=== PATIENT | female | born 1965 | race Two or more races ===

== ENCOUNTER 2023-10-03 06:28 | Day surgery (SDC) | payer OTHER ==
[2023-09-29 12:06] LABS: PH,URINE 5.5 (5.0-8.0); URINE APPEARANCE Clear; URINE BILIRRUBIN Negative (NEGATIVE); URINE BLOOD Negative; URINE COLOR Yellow; URINE GLUCOSE Negative (NEGATIVE); URINE LEUKOCYTE Negative; URINE NITRATE Negative; URINE PROTEIN Negative (NEGATIVE); URINE UROBILINOGEN 0.2 E.U./dl
[2023-09-29 12:10] LABS: URINE EPITHELIAL CELLS 33.2 uL (0.0-38.8); URINE WBC 3.5 uL (0.0-23.2)
[2023-09-29 12:12] LABS: HEMATOCRIT 37.7 % (36.0-45.00); HEMOGLOBIN 12.8 g/dL (12.0-15.00); MEAN CELL VOLUME 86.4 fL (80.00-100.00); MEAN CORPUSCULAR HEMOGLOBIN 29.3 pg (27.00-32.0); MEAN CORPUSCULAR HGB CONC 33.9 g/dl (32.0-36.0); PLATELET COUNT 277 K/uL (150-450); RED BLOOD COUNT 4.36 M/uL (4.00-6.00); RED CELL DISTRIBUTION WIDTH 14.1 % (11.5-14.5)
[2023-09-29 12:40] LABS: ALBUMIN 3.6 gm/dL (3.4-5.0); BILIRUBIN TOTAL 0.27 mg/dL (0.3-1.2); CALCIUM 8.8 mg/dL (8.5-10.1); CREATININE SERUM 0.54 mg/dL (0.55-1.02); GFR 115.95; GLOBULINA 3.8 G/DL (2.4-3.5); POTASSIUM 3.77 mEq/L (3.5-5.1); TOTAL PROTEIN 7.4 gm/dL (6.4-8.2)
[2023-09-29 12:42] LABS: INR < 0.93; PARTIAL THROMBOPLASTIN TIME 28.8 SECONDS (22.0-34.0)
[2023-09-29 12:55] LABS: URINE RBC 0.5 uL (0.0-20.8)
[2023-09-29 12:56] LABS: PROTHROMBIN TIME 9.8 SECONDS (9.0-11.5)
== END 2023-10-03 18:00 | disposition home or self-care (01) ==
LOC: CIR.AMB 06:28
PROVIDERS: ATTEND Orthopaedic Surgery Hand Surgery
DX: S62.617A Displaced fracture of proximal phalanx of left little finger, initial encounter for closed fracture (principal); Z88.6 Allergy status to analgesic agent; Z91.040 Latex allergy status; E11.9 Type 2 diabetes mellitus without complications; I10 Essential (primary) hypertension; Z20.822 Contact with and (suspected) exposure to COVID-19

== ENCOUNTER → 2023-10-03 | Outpatient (CLI) | payer OTHER ==
[~2023-10-03] MED LIST: D-AMPHETAMINE SALT PO; EFFEXOR XR75 MG PO; ORPH100T PO; PROLIA60 MG/1 ML; SYNTHROID50 MCG PO; ZOCOR20 MG PO
== END | disposition home or self-care (01) ==
LOC: RAD 12:08
PROVIDERS: ATTEND Orthopaedic Surgery Hand Surgery
DX: Z01.810 Encounter for preprocedural cardiovascular examination (principal)